=== PATIENT | male | born 1940 | race Caucasian/White ===

== ENCOUNTER 2016-11-20 06:46 | Day surgery (SDC) | payer MEDICARE, OTHER ==
[~2016-11-20 06:46] MED LIST: Lactated Ringers 1,000 ML IV SCH
[2016-11-20] MEDS ORDERED: fentaNYL 100 MCG/2 ML SDV ONE (07:47)
[2016-11-20] MEDS ORDERED: Propofol 200 MG/20 ML SDV ONE ×2 (07:48→08:27)
[2016-11-20 09:04] VITALS: BP 129/66
--- NOTE | 2016-11-20 13:12 | OR ---
PREOPERATIVE DIAGNOSIS: History of polyps. POSTOPERATIVE DIAGNOSIS: Essentially normal exam, very poor bowel prep, poor visualization. PROCEDURE PROPOSED AND PROCEDURE DONE: Total flexible colonoscopy. INDICATION: This is a 76-year-old gentleman who comes in for a colonoscopy due to a history of polyps. He has been examined about every 5 years. TECHNIQUE: The patient was brought to the endoscopy suite and placed in left lateral decubitus position. He was sedated with propofol per [employer]. The flexible video colonoscope was then passed transanally and under visualization advanced to the cecum. He had a rather long colon requiring the entire length of the colonoscope to get to the cecum. He also had a rather poor bowel prep. He had a lot of thick green fluid with solid matter plugging up the scope multiple times and inability to suck out all of this retained thick fluid. Therefore, the examination was not considered a thorough examination and was felt that an adequate examination was obtained to rule out any large polyps or masses. I got a good evaluation of the descending colon and the ascending colon. The transverse colon had quite a bit of fluid as well as the sigmoid, but there was no evidence of any diverticulosis or colitis, and the rectal exam was also normal. The scope was then withdrawn. He tolerated the procedure well. FINAL IMPRESSION: 1. Essentially normal exam with limited visualization due to poor prep. 2. History of prior polyps. PLAN: At his age of 76, I do not feel I am going to have him repeat this examination, and he is reassured that everything looked okay. SCM: 11/20/2016 08:59:23 MODL: 11/20/2016 12:28:29 /[id number]
== END 2016-11-20 10:50 | disposition home or self-care (01) ==
LOC: VM.SDS 06:46
PROVIDERS: ATTEND Surgery
DX: Z12.11 Encounter for screening for malignant neoplasm of colon (principal); Z86.010 Personal history of colon polyps; E11.9 Type 2 diabetes mellitus without complications; I10 Essential (primary) hypertension; E78.5 Hyperlipidemia, unspecified; I73.9 Peripheral vascular disease, unspecified; E78.00 Pure hypercholesterolemia, unspecified; Z79.82 Long term (current) use of aspirin; Z79.84 Long term (current) use of oral hypoglycemic drugs; Z79.899 Other long term (current) drug therapy; Z90.49 Acquired absence of other specified parts of digestive tract; Z98.890 Other specified postprocedural states
CPT/HCPCS: 00810; 82962; G0105; J2704; J3010; J7120